=== PATIENT | male | born 1965 | race Caucasian/White ===

== ENCOUNTER 2020-09-26 16:06 | Emergency (ER) | payer OTHER ==
[~2020-09-26 16:06] MED LIST: BACTRIM DS TAB1 EACH PO; BACTROBAN NASAL1 G1 TOP; CYCLOBENZAPRINE10 MG PO; IBUPROFEN600 MG PO; IBUPROFEN800 MG PO; KEFLEX CAP 500500 MG PO; LORTAB 7.5-3251 EACH PO; NORCO 7.5-3251 EACH PO; OXYCODON-ACETA1 EAC1 PO; PERCOCET 10-321 EACH PO; ZITHROMAX250 MG PO
[2020-11-17] MEDS ORDERED: VITAMIN D21250 MCG PO (09:31)
[2020-11-22] MEDS ORDERED: TRULICITY0.75 MG/0. SQ (09:27)
[2020-12-18] MEDS ORDERED: NITROGLYCERIN0.4 MG SL (10:28)
[2020-12-18] MEDS ORDERED: PROTONIX40 MG PO (10:34)
[2020-12-18] MEDS ORDERED: VITAMIN D21250 MCG PO (10:35)
[2020-12-18] MEDS ORDERED: TOUJEO MAX300 UNIT/1 SQ (10:35)
== END 2020-09-26 21:26 | disposition left against medical advice (07) ==
LOC: ER1 16:06
DX: Z53.21 Procedure and treatment not carried out due to patient leaving prior to being seen by health care provider (principal)
CPT/HCPCS: 93005

== ENCOUNTER 2020-11-22 14:16 | Inpatient (IN) | payer OTHER ==
[~2020-11-22] VITALS: Ht 182.9 cm; Wt 94.8 kg
[~2020-11-22 14:16] MED LIST changes: +TRULICITY0.75 MG/0. SQ; +VITAMIN D21250 MCG PO
[2020-11-22 16:28] LABS: HEMOGLOBIN 10.8 gm/dl (14.0-17.5); RED BLOOD COUNT 3.56 M/UL (4.20-5.50); WHITE BLOOD COUNT 5.6 K/UL (4.5-11.0)
[2020-11-23 04:47] LABS: HEMOGLOBIN 9.3 gm/dl (14.0-17.5); WHITE BLOOD COUNT 5.2 K/UL (4.5-11.0)
[2020-11-23 04:48] LABS: RED BLOOD COUNT 3.07 M/UL (4.20-5.50)
[2020-11-23] MEDS ORDERED: NITROGLYCERIN0.4 MG SL (09:30)
[2020-11-23] MEDS ORDERED: TRAMADOL HCL50 MG PO (09:31)
[2020-11-23] MEDS ORDERED: IBUPROFEN600 MG PO (09:34)
[2020-11-23] MEDS ORDERED: LOPRESSOR 25 MG25 MG PO (09:39)
[2020-11-23] MEDS ORDERED: AMLODIPINE BESY10 MG PO (09:40)
[2020-11-23] MEDS ORDERED: TOUJEO MAX300 UNIT/1 SC (11:02)
[2020-11-23] MEDS ORDERED: APIDRA SOL100 UNIT/1 SC (11:05)
[2020-11-23] MEDS ORDERED: GABAPENTIN800 MG PO (11:07)
[2020-11-23] MEDS ORDERED: ONDANSETRON ODT8 MG PO (12:23)
[2020-11-24] MEDS ORDERED: LANTUS INS100 UTS/M1 SC (15:38)
[2020-11-24] MEDS ORDERED: HYDRALAZINE HCL50 MG PO (15:38)
[2020-11-24] MEDS ORDERED: ATORVASTATIN CA20 MG PO (15:38)
[2020-11-24] MEDS ORDERED: OXYCODONE HCL5 MG PO (15:38)
--- NOTE | 2020-11-24 18:00 | NUR ---
REPORT CALLED TO [facility] TO MICHAEL VAZQUEZ
[2020-11-25 10:14] LABS: CREATININE, URINE 54.3 mg/dL (Not Estab.)
[2020-12-18] MEDS ORDERED: NITROGLYCERIN0.4 MG SL (10:28)
[2020-12-18] MEDS ORDERED: PROTONIX40 MG PO (10:34)
[2020-12-18] MEDS ORDERED: TOUJEO MAX300 UNIT/1 SQ (10:35)
[2020-12-18] MEDS ORDERED: VITAMIN D21250 MCG PO (10:35)
== END 2020-11-24 21:30 | disposition short-term general hospital (02) | DRG 280 ==
LOC: ER1 14:16 → CDU 17:48 → PROG CARE 11-23 10:15
PROVIDERS: Internal Medicine Cardiovascular Disease; Physician Assistant Medical; ADMIT Internal Medicine
PROC: B24BZZ4 Ultrasonography of Heart with Aorta, Transesophageal (ICD-10-PCS; principal; 2020-11-23)
PROC: 4A023N7 Measurement of Cardiac Sampling and Pressure, Left Heart, Percutaneous Approach (ICD-10-PCS; 2020-11-24)
PROC: B2111ZZ Fluoroscopy of Multiple Coronary Arteries using Low Osmolar Contrast (ICD-10-PCS; 2020-11-24)
DX: I21.4 Non-ST elevation (NSTEMI) myocardial infarction (principal); I50.43 Acute on chronic combined systolic (congestive) and diastolic (congestive) heart failure; N17.9 Acute kidney failure, unspecified; N18.4 Chronic kidney disease, stage 4 (severe); I13.0 Hypertensive heart and chronic kidney disease with heart failure and stage 1 through stage 4 chronic kidney disease, or unspecified chronic kidney disease; E87.1 Hypo-osmolality and hyponatremia; E87.5 Hyperkalemia; Z20.822 Contact with and (suspected) exposure to COVID-19; E11.649 Type 2 diabetes mellitus with hypoglycemia without coma; G89.29 Other chronic pain; E11.21 Type 2 diabetes mellitus with diabetic nephropathy; E66.9 Obesity, unspecified; E11.22 Type 2 diabetes mellitus with diabetic chronic kidney disease; I08.1 Rheumatic disorders of both mitral and tricuspid valves; I25.5 Ischemic cardiomyopathy; D63.1 Anemia in chronic kidney disease; F17.210 Nicotine dependence, cigarettes, uncomplicated; Z79.4 Long term (current) use of insulin; Z82.49 Family history of ischemic heart disease and other diseases of the circulatory system; Z84.1 Family history of disorders of kidney and ureter; Z83.3 Family history of diabetes mellitus; Z79.82 Long term (current) use of aspirin; Z68.28 Body mass index [BMI] 28.0-28.9, adult
CPT/HCPCS: ECHO; 36415; 71045; 80048; 80053; 80061; 81001; 82043; 82550; 82553; 82570; 82728; 82962; 83036; 83540; 83550; 83874; 83880; 84156; 84484; 85025; 85027; 85347; 85610; 85730; 93005; 93306; 94640; 94664; 94760; 99152; 99285; C1769; C1894; J0360; J1644; J2250; J2270; J3010; Q9965; U0002

== ENCOUNTER 2020-12-17 22:57 | Inpatient (IN) | payer OTHER ==
[~2020-12-17] VITALS: Ht 182.9 cm; Wt 96.2 kg
[~2020-12-17 22:57] MED LIST changes: +AMLODIPINE BESY10 MG PO; +APIDRA SOL100 UNIT/1 SC; +ATORVASTATIN CA20 MG PO; +GABAPENTIN800 MG PO; +HYDRALAZINE HCL50 MG PO; +LANTUS INS100 UTS/M1 SC; +LOPRESSOR 25 MG25 MG PO; +NITROGLYCERIN0.4 MG SL; +ONDANSETRON ODT8 MG PO; +OXYCODONE HCL5 MG PO; +TOUJEO MAX300 UNIT/1 SC; +TRAMADOL HCL50 MG PO
[2020-12-18 00:09] LABS: HEMOGLOBIN 8.1 gm/dl (14.0-17.5); RED BLOOD COUNT 2.79 M/UL (4.20-5.50); WHITE BLOOD COUNT 10.2 K/UL (4.5-11.0)
[2020-12-18 00:38] LABS: BUN/CREATININE RATIO 15 (0-10)
[2020-12-18] MEDS ORDERED: ALPRAZOLAM0.5 MG PO (10:28)
[2020-12-18] MEDS ORDERED: ATORVASTATIN CA40 MG PO (10:29)
[2020-12-18] MEDS ORDERED: BUMETANIDE2 MG PO (10:30)
[2020-12-18] MEDS ORDERED: ZEBETA 5 MG TAB5 MG PO (10:30)
[2020-12-18] MEDS ORDERED: PLAVIX 75 MG TA75 MG PO (10:30)
[2020-12-18] MEDS ORDERED: FERROUS SULFAT325 M2 PO (10:31)
[2020-12-18] MEDS ORDERED: DOCUSATE SODIU100 MG PO (10:31)
[2020-12-18] MEDS ORDERED: ISOSORBIDE DINI10 MG PO (10:32)
[2020-12-18] MEDS ORDERED: HYDRALAZINE HCL10 MG PO (10:32)
[2020-12-18] MEDS ORDERED: GABAPENTIN300 MG PO (10:32)
[2020-12-18] MEDS ORDERED: ZAROXOLYN/DIUL2.5 MG PO (10:33)
[2020-12-18] MEDS ORDERED: OXYCODONE HCL5 MG PO (10:34)
[2020-12-18] MEDS ORDERED: ASPIRIN EC81 MG PO (10:36)
[2020-12-18] MEDS ORDERED: APIDRA SOL100 UNIT/1 SC (10:36)
[2020-12-19 04:01] LABS: HEMOGLOBIN 8.3 gm/dl (14.0-17.5); RED BLOOD COUNT 2.89 M/UL (4.20-5.50); WHITE BLOOD COUNT 10.2 K/UL (4.5-11.0)
[2020-12-20 06:18] LABS: HEMOGLOBIN 8.3 gm/dl (14.0-17.5); RED BLOOD COUNT 2.87 M/UL (4.20-5.50); WHITE BLOOD COUNT 7.7 K/UL (4.5-11.0)
[2020-12-22 08:20] LABS: ANTISTREPTOLYSIN O AB 107.6 IU/mL (0.0-200.0); COMPLEMENT C3, SERUM 174 mg/dL (82-167); COMPLEMENT C4, SERUM 33 mg/dL (12-38)
[2020-12-22 09:20] LABS: HBSAG SCREEN Negative (Negative); HEP B CORE AB, TOT Negative (Negative); HEP C VIRUS AB 0.5 (0.0-0.9)
[2020-12-22 15:22] LABS: ANTI-DSDNA ANTIBODIES 1 IU/mL (0-9)
[2020-12-22 16:34] LABS: A/G RATIO 0.7 (0.7-1.7); ALBUMIN 2.5 g/dL (2.9-4.4); ALPHA-1-GLOBULIN 0.4 g/dL (0.0-0.4); ALPHA-2-GLOBULIN 1.2 g/dL (0.4-1.0); ATYPICAL PANCA <1:20 titer (Neg:<1:20); BETA GLOBULIN 1.1 g/dL (0.7-1.3); CYTOPLASMIC (C-ANCA) <1:20 titer (Neg:<1:20); GAMMA GLOBULIN 1.1 g/dL (0.4-1.8); GLOBULIN, TOTAL 3.8 g/dL (2.2-3.9); IMMUNOFIXATION RESULT, SERUM Comment: (.); IMMUNOGLOBULIN A, QN, SERUM 505 mg/dL (90-386); IMMUNOGLOBULIN G, QN, SERUM 1105 mg/dL (603-1613); IMMUNOGLOBULIN M, QN, SERUM 86 mg/dL (20-172); M-SPIKE Not Observed g/dL (Not Observed); PERINUCLEAR (P-ANCA) <1:20 titer (Neg:<1:20); PROTEIN, TOTAL, SERUM 6.3 g/dL (6.0-8.5)
--- NOTE | 2020-12-23 00:30 | NUR ---
PATIENT HAS ARRIVED ON THE FLOOR WITH RN AND RESPIRATORY ON CONTINUOUS BIPAP. PATIENT CONTINUOUSLY REMOVES PULSE OX SENSOR DESPITE INSTRUCTIONS NOT TO.
[2020-12-23 02:40] LABS: HEMOGLOBIN 7.6 gm/dl (14.0-17.5); RED BLOOD COUNT 2.68 M/UL (4.20-5.50); WHITE BLOOD COUNT 6.4 K/UL (4.5-11.0)
[2020-12-24 08:15] LABS: WHITE BLOOD COUNT 6.6 K/UL (4.5-11.0)
[2020-12-24 08:16] LABS: RED BLOOD COUNT 2.38 M/UL (4.20-5.50)
[2020-12-24 08:24] LABS: HEMOGLOBIN 6.9 gm/dl (14.0-17.5)
[2020-12-25 05:13] LABS: HEMOGLOBIN 8.4 gm/dl (14.0-17.5); WHITE BLOOD COUNT 6.2 K/UL (4.5-11.0)
[2020-12-25 05:19] LABS: RED BLOOD COUNT 2.93 M/UL (4.20-5.50)
[2020-12-26 03:55] LABS: HEMOGLOBIN 7.8 gm/dl (14.0-17.5); RED BLOOD COUNT 2.72 M/UL (4.20-5.50)
[2020-12-27 04:54] LABS: HEMOGLOBIN 7.8 gm/dl (14.0-17.5); RED BLOOD COUNT 2.77 M/UL (4.20-5.50); WHITE BLOOD COUNT 5.2 K/UL (4.5-11.0)
[2020-12-27 05:19] LABS: HBSAG SCREEN Negative (Negative); HEP A AB, IGM Negative (Negative); HEP B CORE AB, IGM Negative (Negative); HEP C VIRUS AB 0.5 (0.0-0.9)
[2020-12-27 13:10] LABS: TOTAL PROTEIN, BODY FLUID 3.4 gm/dL
[2020-12-28 05:16] LABS: HEMOGLOBIN 7.8 gm/dl (14.0-17.5); RED BLOOD COUNT 2.74 M/UL (4.20-5.50); WHITE BLOOD COUNT 6.4 K/UL (4.5-11.0)
[2020-12-29 04:12] LABS: HEMOGLOBIN 7.6 gm/dl (14.0-17.5); RED BLOOD COUNT 2.66 M/UL (4.20-5.50); WHITE BLOOD COUNT 7.7 K/UL (4.5-11.0)
[2020-12-29 10:51] LABS: BODY FLUID SOURCE PLEURAL; MONONUCLEAR CELLS 94 (75-100); POLYMORPHONUCLEAR % 6 (0-25); RBC (AUTOMATED) 400 (0-100000); WBC (AUTOMATED) 357 (0-500)
[2020-12-29 11:11] LABS: LDH, BODY FLUID 197 U/L; TOTAL PROTEIN, BODY FLUID 4.3 gm/dL
[2020-12-30 05:27] LABS: HEMOGLOBIN 7.5 gm/dl (14.0-17.5); RED BLOOD COUNT 2.68 M/UL (4.20-5.50); WHITE BLOOD COUNT 6.8 K/UL (4.5-11.0)
[2020-12-31 05:47] LABS: HEMOGLOBIN 9.2 gm/dl (14.0-17.5); WHITE BLOOD COUNT 8.4 K/UL (4.5-11.0)
[2020-12-31 05:49] LABS: RED BLOOD COUNT 3.23 M/UL (4.20-5.50)
[2021-01-01 03:45] LABS: HEMOGLOBIN 8.9 gm/dl (14.0-17.5); RED BLOOD COUNT 3.14 M/UL (4.20-5.50)
[2021-01-01 03:47] LABS: WHITE BLOOD COUNT 6.2 K/UL (4.5-11.0)
[2021-01-02 03:04] LABS: HEMOGLOBIN 8.8 gm/dl (14.0-17.5); RED BLOOD COUNT 3.23 M/UL (4.20-5.50)
[2021-01-02 03:22] LABS: WHITE BLOOD COUNT 8.2 K/UL (4.5-11.0)
--- NOTE | 2021-01-02 17:50 | NUR ---
DR. KLEIN ON FLOOR, STATES TO HOLD PTS HEPARIN TONIGNT AND IN AM FOR BEDSIDE PROCEDURE IN AM
[2021-01-04 03:01] LABS: HEMOGLOBIN 9.7 gm/dl (14.0-17.5); RED BLOOD COUNT 3.43 M/UL (4.20-5.50); WHITE BLOOD COUNT 9.2 K/UL (4.5-11.0)
[2021-01-05] MEDS ORDERED: BUMETANIDE2 MG PO (12:18)
[2021-01-26] MEDS ORDERED: NITROGLYCERIN0.4 MG SL (10:28)
[2021-01-26] MEDS ORDERED: PROTONIX40 MG PO (10:34)
[2021-01-26] MEDS ORDERED: TOUJEO MAX300 UNIT/1 SQ (10:35)
[2021-01-26] MEDS ORDERED: VITAMIN D21250 MCG PO (10:35)
== END 2021-01-05 13:08 | disposition home or self-care (01) | DRG 280 ==
LOC: ER1 22:57 → MED SURG 4 12-18 08:42 → PROG CARE 12-18 08:42 → CDU 12-18 08:42 → CCU 12-18 08:42 → MED SURG 4 12-18 19:59 → PROG CARE 12-22 23:11 → CCU 12-24 07:48 → PROG CARE 12-31 13:21
PROVIDERS: Emergency Medicine; Internal Medicine; Internal Medicine Nephrology; Internal Medicine Pulmonary Disease; Physician Assistant; Physician Assistant Medical; ADMIT Internal Medicine
PROC: B24BZZ4 Ultrasonography of Heart with Aorta, Transesophageal (ICD-10-PCS; 2020-12-19)
PROC: 5A09357 Assistance with Respiratory Ventilation, Less than 24 Consecutive Hours, Continuous Positive Airway Pressure (ICD-10-PCS; 2020-12-23)
PROC: 5A12012 Performance of Cardiac Output, Single, Manual (ICD-10-PCS; principal; 2020-12-24)
PROC: 0BH17EZ Insertion of Endotracheal Airway into Trachea, Via Natural or Artificial Opening (ICD-10-PCS; 2020-12-24)
PROC: 3E033XZ Introduction of Vasopressor into Peripheral Vein, Percutaneous Approach (ICD-10-PCS; 2020-12-24)
PROC: 5A1D70Z Performance of Urinary Filtration, Intermittent, Less than 6 Hours Per Day (ICD-10-PCS; 2020-12-24)
PROC: 5A1955Z Respiratory Ventilation, Greater than 96 Consecutive Hours (ICD-10-PCS; 2020-12-24)
PROC: 30233N1 Transfusion of Nonautologous Red Blood Cells into Peripheral Vein, Percutaneous Approach (ICD-10-PCS; 2020-12-24)
PROC: 02HV33Z Insertion of Infusion Device into Superior Vena Cava, Percutaneous Approach (ICD-10-PCS; 2020-12-24)
PROC: B548ZZA Ultrasonography of Superior Vena Cava, Guidance (ICD-10-PCS; 2020-12-24)
PROC: 5A1D70Z Performance of Urinary Filtration, Intermittent, Less than 6 Hours Per Day (ICD-10-PCS; 2020-12-27)
PROC: 0W9B30Z Drainage of Left Pleural Cavity with Drainage Device, Percutaneous Approach (ICD-10-PCS; 2020-12-27)
PROC: BB4BZZZ Ultrasonography of Pleura (ICD-10-PCS; 2020-12-27)
PROC: 5A1D70Z Performance of Urinary Filtration, Intermittent, Less than 6 Hours Per Day (ICD-10-PCS; 2020-12-29)
PROC: 0W993ZZ Drainage of Right Pleural Cavity, Percutaneous Approach (ICD-10-PCS; 2020-12-29)
PROC: BB4BZZZ Ultrasonography of Pleura (ICD-10-PCS; 2020-12-29)
PROC: 0JH63XZ Insertion of Tunneled Vascular Access Device into Chest Subcutaneous Tissue and Fascia, Percutaneous Approach (ICD-10-PCS; 2021-01-04)
PROC: 02HV33Z Insertion of Infusion Device into Superior Vena Cava, Percutaneous Approach (ICD-10-PCS; 2021-01-04)
PROC: B5181ZA Fluoroscopy of Superior Vena Cava using Low Osmolar Contrast, Guidance (ICD-10-PCS; 2021-01-04)
DX: I13.2 Hypertensive heart and chronic kidney disease with heart failure and with stage 5 chronic kidney disease, or end stage renal disease (principal); N17.0 Acute kidney failure with tubular necrosis; I21.4 Non-ST elevation (NSTEMI) myocardial infarction; J96.01 Acute respiratory failure with hypoxia; I50.23 Acute on chronic systolic (congestive) heart failure; G93.41 Metabolic encephalopathy; I46.2 Cardiac arrest due to underlying cardiac condition; R57.0 Cardiogenic shock; J18.9 Pneumonia, unspecified organism; N18.6 End stage renal disease; E87.2 Acidosis; J44.0 Chronic obstructive pulmonary disease with (acute) lower respiratory infection; E27.40 Unspecified adrenocortical insufficiency; J90 Pleural effusion, not elsewhere classified; Z20.822 Contact with and (suspected) exposure to COVID-19; L89.152 Pressure ulcer of sacral region, stage 2; F17.210 Nicotine dependence, cigarettes, uncomplicated; K21.9 Gastro-esophageal reflux disease without esophagitis; E11.22 Type 2 diabetes mellitus with diabetic chronic kidney disease; I25.5 Ischemic cardiomyopathy; I27.20 Pulmonary hypertension, unspecified; E87.5 Hyperkalemia; L89.156 Pressure-induced deep tissue damage of sacral region; R13.10 Dysphagia, unspecified; E87.6 Hypokalemia; I08.1 Rheumatic disorders of both mitral and tricuspid valves; E78.5 Hyperlipidemia, unspecified; W17.89XA Other fall from one level to another, initial encounter; E11.649 Type 2 diabetes mellitus with hypoglycemia without coma; F41.9 Anxiety disorder, unspecified; D63.1 Anemia in chronic kidney disease; Z79.4 Long term (current) use of insulin; Z79.82 Long term (current) use of aspirin; Y93.I9 Activity, other involving external motion; Y92.488 Other paved roadways as the place of occurrence of the external cause; Z82.49 Family history of ischemic heart disease and other diseases of the circulatory system; Z84.1 Family history of disorders of kidney and ureter; Z83.3 Family history of diabetes mellitus
CPT/HCPCS: ECHO; 31500; 36415; 36430; 36600; 70450; 71045; 71046; 71250; 72125; 74018; 77001; 80048; 80053; 80074; 82140; 82533; 82550; 82553; 82570; 82575; 82728; 82784; 82803; 82962; 83520; 83540; 83550; 83615; 83735; 83874; 83880; 83883; 84100; 84155; 84156; 84157; 84165; 84484; 85025; 85027; 85610; 85730; 86038; 86060; 86140; 86160; 86162; 86225; 86256; 86334; 86704; 86706; 86708; 86803; 86850; 86900; 86901; 86920; 87040; 87070; 87086; 87205; 87340; 89051; 90935; 90937; 92526; 92610; 92950; 93005; 93306; 94003; 94640; 94660; 94664; 94760; 99284; A6212; C1729; C1750; C1752; C1769; C9113; J0330; J0690; J0834; J1205; J1642; J1644; J1720; J1756; J1940; J2001; J2250; J2270; J2543; J2704; J3010; J3475; J7030; J7040; J7070; J7120; P9016; P9047; U0002

== ENCOUNTER 2021-01-12 19:23 | Emergency (ER) | payer OTHER ==
[~2021-01-12 19:23] MED LIST changes: +ALPRAZOLAM0.5 MG PO; +ASPIRIN EC81 MG PO; +ATORVASTATIN CA40 MG PO; +BUMETANIDE2 MG PO; +DOCUSATE SODIU100 MG PO; +FERROUS SULFAT325 M2 PO; +GABAPENTIN300 MG PO; +HYDRALAZINE HCL10 MG PO; +ISOSORBIDE DINI10 MG PO; +PLAVIX 75 MG TA75 MG PO; +ZAROXOLYN/DIUL2.5 MG PO; +ZEBETA 5 MG TAB5 MG PO
[2021-01-12 20:25] LABS: RED BLOOD COUNT 3.16 M/UL (4.20-5.50); WHITE BLOOD COUNT 4.5 K/UL (4.5-11.0)
[2021-01-26] MEDS ORDERED: NITROGLYCERIN0.4 MG SL (10:28)
[2021-01-26] MEDS ORDERED: PROTONIX40 MG PO (10:34)
[2021-01-26] MEDS ORDERED: TOUJEO MAX300 UNIT/1 SQ (10:35)
[2021-01-26] MEDS ORDERED: VITAMIN D21250 MCG PO (10:35)
== END 2021-01-12 22:44 | disposition home or self-care (01) ==
LOC: ER1 19:23
PROVIDERS: Physician Assistant
DX: L89.152 Pressure ulcer of sacral region, stage 2 (principal); F17.210 Nicotine dependence, cigarettes, uncomplicated; I25.2 Old myocardial infarction; E78.5 Hyperlipidemia, unspecified; E11.22 Type 2 diabetes mellitus with diabetic chronic kidney disease; N18.6 End stage renal disease; Z99.2 Dependence on renal dialysis; Z95.1 Presence of aortocoronary bypass graft; Z91.15 Patient's noncompliance with renal dialysis
CPT/HCPCS: 80053; 83605; 85025; 85652; 86140; 99283

== ENCOUNTER → 2021-01-23 | Outpatient (CLI) | payer OTHER ==
[~2021-01-23] MED LIST changes: +CLINDAMYCIN HC300 MG PO; +HYDROXYZINE PAM25 MG PO; +IBU600 MG PO; +IPRAT-ALBUT 0.5-3 ML NEB; +METOPROLOL SUCC25 MG PO; +METOPROLOL TART25 MG PO; +OXYCODONE HCL10 MG PO; +OXYCONTIN10 MG PO; +POLYETHYLENE GL17 GM PO; +PROTONIX40 MG PO; +TOUJEO MAX300 UNIT/1 SQ
== END ==
LOC: WCC 09:00
DX: L89.153 Pressure ulcer of sacral region, stage 3 (principal); I13.2 Hypertensive heart and chronic kidney disease with heart failure and with stage 5 chronic kidney disease, or end stage renal disease; E11.22 Type 2 diabetes mellitus with diabetic chronic kidney disease; N18.6 End stage renal disease; Z99.2 Dependence on renal dialysis; I50.9 Heart failure, unspecified; Z88.6 Allergy status to analgesic agent; F17.210 Nicotine dependence, cigarettes, uncomplicated; I25.10 Atherosclerotic heart disease of native coronary artery without angina pectoris; Z79.4 Long term (current) use of insulin; E11.622 Type 2 diabetes mellitus with other skin ulcer
CPT/HCPCS: 87070; 87077; 87186; 87205; G0463

== ENCOUNTER 2021-01-26 12:34 | Inpatient (IN) | payer OTHER ==
[~2021-01-26] VITALS: Ht 182.9 cm; Wt 93.2 kg
[~2021-01-26 12:34] MED LIST changes: -CLINDAMYCIN HC300 MG PO; -HYDROXYZINE PAM25 MG PO; -IBU600 MG PO; -IPRAT-ALBUT 0.5-3 ML NEB; -METOPROLOL SUCC25 MG PO; -METOPROLOL TART25 MG PO; -OXYCODONE HCL10 MG PO; -OXYCONTIN10 MG PO; -POLYETHYLENE GL17 GM PO
[2021-01-26 14:05] LABS: HEMOGLOBIN 8.3 gm/dl (14.0-17.5); RED BLOOD COUNT 2.86 M/UL (4.20-5.50); WHITE BLOOD COUNT 12.5 K/UL (4.5-11.0)
[2021-01-26] MEDS ORDERED: ZEBETA 5 MG TAB5 MG PO (17:52)
[2021-01-26] MEDS ORDERED: BUMETANIDE2 MG PO (17:54)
[2021-01-26] MEDS ORDERED: ZAROXOLYN/DIUL2.5 MG PO (17:54)
[2021-01-26] MEDS ORDERED: METOPROLOL TART25 MG PO (17:55)
[2021-01-26] MEDS ORDERED: DOCUSATE SODIU100 MG PO (17:57)
[2021-01-26] MEDS ORDERED: IBU600 MG PO (18:04)
[2021-01-27 07:16] LABS: HEMOGLOBIN 8.5 gm/dl (14.0-17.5); RED BLOOD COUNT 2.99 M/UL (4.20-5.50)
[2021-01-27 07:19] LABS: WHITE BLOOD COUNT 17.2 K/UL (4.5-11.0)
[2021-01-28 04:29] LABS: HEMOGLOBIN 7.7 gm/dl (14.0-17.5); RED BLOOD COUNT 2.73 M/UL (4.20-5.50); WHITE BLOOD COUNT 19.9 K/UL (4.5-11.0)
[2021-01-29 05:11] LABS: HEMOGLOBIN 7.2 gm/dl (14.0-17.5); RED BLOOD COUNT 2.54 M/UL (4.20-5.50); WHITE BLOOD COUNT 16.9 K/UL (4.5-11.0)
[2021-01-30 06:54] LABS: HEMOGLOBIN 7.6 gm/dl (14.0-17.5); RED BLOOD COUNT 2.68 M/UL (4.20-5.50); WHITE BLOOD COUNT 12.5 K/UL (4.5-11.0)
--- NOTE | 2021-01-31 00:24 | NUR ---
PT STATES THAT WHEN THE CHAVA FOR MRI CAME IN HE PULLED OFF ALL STICKERS AND FENTAYL PATCH, I DID FIND THE FENTAYL PATCH IN THE BED IN A BALL, I THREW THIS IN THE BIOHAZARD BOX WITH MORELIA GOMES RN.
[2021-01-31 08:02] LABS: RED BLOOD COUNT 2.86 M/UL (4.20-5.50); WHITE BLOOD COUNT 10.1 K/UL (4.5-11.0)
--- NOTE | 2021-01-31 11:15 | NUR ---
RN NOTIFIED MD OF CLUB STEWARD DISPOSAL OF FENTANYL PATCH. MD ORDERED RN TO APPLY A NEW PATCH THEN RETIME ADMINISTRATION FOR THIS APPLICATION TO RESUME SCHEDULE DURING HOSPITALIZATION.
--- NOTE | 2021-01-31 12:42 | NUR ---
FENTANYL PATCH APPLIED TO RIGHT UPPER SHOULDER.
--- NOTE | 2021-01-31 20:05 | NUR ---
PATIENT CONTINUES TO REFUSE WAFFLE MATTRESS, COMPLETE WOUND CARE, AND OTHER INTERVENTIONS TO AID IN GLUTEAL FOLD ULCER HEALING. DR. STEINBERG MADE AWARE.
[2021-02-01 07:17] LABS: HEMOGLOBIN 7.9 gm/dl (14.0-17.5); RED BLOOD COUNT 2.8 M/UL (4.20-5.50); WHITE BLOOD COUNT 8.9 K/UL (4.5-11.0)
--- NOTE | 2021-02-01 19:44 | NUR ---
PATIENT CONTINUES TO BE NONCOMPLIANT WITH SCHEDULED TURNING, COMPLETE WOUND CARE REGIMEN, AND WAFFLE MATTRESS.
[2021-02-02 10:25] LABS: HEMOGLOBIN 8.2 gm/dl (14.0-17.5); RED BLOOD COUNT 2.93 M/UL (4.20-5.50); WHITE BLOOD COUNT 8.4 K/UL (4.5-11.0)
[2021-02-02 10:58] LABS: BUN/CREATININE RATIO 20 (0-10)
[2021-02-03 10:20] LABS: HEMOGLOBIN 7.7 gm/dl (14.0-17.5); RED BLOOD COUNT 2.68 M/UL (4.20-5.50); WHITE BLOOD COUNT 6.9 K/UL (4.5-11.0)
[2021-02-04 07:52] LABS: HEMOGLOBIN 7.5 gm/dl (14.0-17.5); RED BLOOD COUNT 2.68 M/UL (4.20-5.50); WHITE BLOOD COUNT 5.4 K/UL (4.5-11.0)
--- NOTE | 2021-02-04 19:15 | NUR ---
PT REQUESTING PAIN MEDS AND BP 101/61. MD NOTIFIED. ONLY ONE PERCOCET GIVEN AT THAT TIME. APPROXIMATELY 2 HRS LATER PT ASKING FOR IV MORPHINE. B/P 97/61. MD NOTIFIED AND IV BOLUS GIVEN. B/P AFTER BOLUS 94/48. MD AWARE AND MEDS HELD. PT TAKEN TO DIALYSIS AT THAT TIME.
[2021-02-06 07:55] LABS: RED BLOOD COUNT 2.44 M/UL (4.20-5.50); WHITE BLOOD COUNT 5.9 K/UL (4.5-11.0)
[2021-02-06 07:57] LABS: HEMOGLOBIN 6.6 gm/dl (14.0-17.5)
--- NOTE | 2021-02-06 19:14 | NUR ---
UNABLE TO FIND DURAGESIC PATCH THAT WAS ON PT'S RIGHT SHOULDER. PT SAID THAT IT APPARENTLY SWEATED OFF. UNABLE TO FIND PATCH IN BED OR ON PT'S CLOTHING. AWARE. SPOKE WITH PHARMACY AND THEY STATED THAT A NOW ORDER WOULD NEED TO BE PLACED. DR STEINBERG NOTIFIED
[2021-02-07 07:17] LABS: RED BLOOD COUNT 2.44 M/UL (4.20-5.50)
[2021-02-07 07:18] LABS: WHITE BLOOD COUNT 7.6 K/UL (4.5-11.0)
[2021-02-08 06:18] LABS: HEMOGLOBIN 7.5 gm/dl (14.0-17.5); RED BLOOD COUNT 2.66 M/UL (4.20-5.50)
[2021-02-08 06:32] LABS: WHITE BLOOD COUNT 4.8 K/UL (4.5-11.0)
[2021-02-09 07:33] LABS: HEMOGLOBIN 7.6 gm/dl (14.0-17.5); RED BLOOD COUNT 2.69 M/UL (4.20-5.50)
[2021-02-10 04:29] LABS: HEMOGLOBIN 7.8 gm/dl (14.0-17.5); RED BLOOD COUNT 2.76 M/UL (4.20-5.50)
[2021-02-10 04:37] LABS: WHITE BLOOD COUNT 6.6 K/UL (4.5-11.0)
[2021-02-11 09:33] LABS: HEMOGLOBIN 8.8 gm/dl (14.0-17.5); WHITE BLOOD COUNT 6.2 K/UL (4.5-11.0)
[2021-02-11 09:35] LABS: RED BLOOD COUNT 3.26 M/UL (4.20-5.50)
[2021-02-12 07:26] LABS: HEMOGLOBIN 7.7 gm/dl (14.0-17.5); WHITE BLOOD COUNT 6.7 K/UL (4.5-11.0)
[2021-02-12 07:35] LABS: RED BLOOD COUNT 2.81 M/UL (4.20-5.50)
[2021-02-12 08:10] LABS: HBSAG SCREEN Negative (Negative); HEP A AB, IGM Negative (Negative); HEP B CORE AB, IGM Negative (Negative); HEP C VIRUS AB <0.1 (0.0-0.9)
[2021-02-13 07:36] LABS: HEMOGLOBIN 7.6 gm/dl (14.0-17.5); RED BLOOD COUNT 2.76 M/UL (4.20-5.50); WHITE BLOOD COUNT 6.9 K/UL (4.5-11.0)
[2021-02-14 08:10] LABS: HEMOGLOBIN 7.7 gm/dl (14.0-17.5); RED BLOOD COUNT 2.78 M/UL (4.20-5.50); WHITE BLOOD COUNT 6.5 K/UL (4.5-11.0)
[2021-02-15 04:51] LABS: HEMOGLOBIN 7.3 gm/dl (14.0-17.5); RED BLOOD COUNT 2.66 M/UL (4.20-5.50)
[2021-02-15 05:40] LABS: WHITE BLOOD COUNT 4.6 K/UL (4.5-11.0)
[2021-02-15] MEDS ORDERED: OXYCONTIN10 MG PO (19:14)
[2021-02-15] MEDS ORDERED: METOPROLOL SUCC25 MG PO (19:14)
[2021-02-15] MEDS ORDERED: HYDROXYZINE PAM25 MG PO (19:14)
[2021-02-15] MEDS ORDERED: ATORVASTATIN CA40 MG PO (19:14)
[2021-02-15] MEDS ORDERED: IPRAT-ALBUT 0.5-3 ML NEB (19:14)
[2021-02-15] MEDS ORDERED: POLYETHYLENE GL17 GM PO (19:14)
[2021-02-16 08:21] LABS: HEMOGLOBIN 8.1 gm/dl (14.0-17.5); RED BLOOD COUNT 2.9 M/UL (4.20-5.50); WHITE BLOOD COUNT 4.8 K/UL (4.5-11.0)
[2021-02-17 08:00] LABS: HEMOGLOBIN 7.3 gm/dl (14.0-17.5); RED BLOOD COUNT 2.62 M/UL (4.20-5.50); WHITE BLOOD COUNT 4.4 K/UL (4.5-11.0)
[2021-02-18 07:43] LABS: HEMOGLOBIN 7.8 gm/dl (14.0-17.5); RED BLOOD COUNT 2.79 M/UL (4.20-5.50); WHITE BLOOD COUNT 4.6 K/UL (4.5-11.0)
[2021-02-19 07:37] LABS: HEMOGLOBIN 8.2 gm/dl (14.0-17.5); RED BLOOD COUNT 2.91 M/UL (4.20-5.50); WHITE BLOOD COUNT 5.3 K/UL (4.5-11.0)
[2021-02-20 07:03] LABS: HEMOGLOBIN 8.3 gm/dl (14.0-17.5); RED BLOOD COUNT 2.92 M/UL (4.20-5.50)
[2021-02-20 07:09] LABS: WHITE BLOOD COUNT 6.7 K/UL (4.5-11.0)
--- NOTE | 2021-02-20 08:06 | NUR ---
REPORTED CRITICAL LAB VALUE TO PROVIDER. PRINCE HAD BUN OF 101. PROVIDER ASKED ABOUT CREATNIN LEVEL WHICH WAS 3.89. NO ORDERS RECIEVED AT THIS TIME. WILL CONTINUE TO MONITOR.
[2021-02-22 10:58] LABS: WHITE BLOOD COUNT 5.1 K/UL (4.5-11.0)
[2021-02-22 11:25] LABS: RED BLOOD COUNT 2.45 M/UL (4.20-5.50)
[2021-02-23 08:56] LABS: HEMOGLOBIN 7.9 gm/dl (14.0-17.5); WHITE BLOOD COUNT 4.4 K/UL (4.5-11.0)
[2021-02-23 09:02] LABS: RED BLOOD COUNT 2.74 M/UL (4.20-5.50)
--- NOTE | 2021-02-23 11:35 | NUR ---
PATIENT HAS HAD BUN LAB VALUES OF 101,120, 118, AND 131 OVER THE LAST CONSECUTIVE DAYS. THE PROVIDER HAS BEEN NOTIFIED OF THESE CRITICAL LAB VALUES AND GAVE NO ORDERS. WILL CONTINUE TO MONITOR.
--- NOTE | 2021-02-23 12:24 | NUR ---
PATIENT HAD BLOOD GLUCOSE OF67. LUNCH TRAYS WERE BEING DILIVERED AND PATIENT WAS GIVEN APPLEJUICE AND PEANUTBUTTER AND CRACKERS. WILL CONTINUE TO MONITOR.
[2021-02-24 02:47] LABS: HEMOGLOBIN 7.6 gm/dl (14.0-17.5); RED BLOOD COUNT 2.61 M/UL (4.20-5.50)
[2021-02-25 07:58] LABS: HEMOGLOBIN 8.6 gm/dl (14.0-17.5); WHITE BLOOD COUNT 4.5 K/UL (4.5-11.0)
[2021-02-25 07:59] LABS: RED BLOOD COUNT 2.93 M/UL (4.20-5.50)
[2021-02-26 05:56] LABS: RED BLOOD COUNT 2.71 M/UL (4.20-5.50); WHITE BLOOD COUNT 4.5 K/UL (4.5-11.0)
[2021-02-27 07:05] LABS: HEMOGLOBIN 7.9 gm/dl (14.0-17.5); RED BLOOD COUNT 2.78 M/UL (4.20-5.50); WHITE BLOOD COUNT 4.2 K/UL (4.5-11.0)
[2021-02-28 06:43] LABS: RED BLOOD COUNT 2.73 M/UL (4.20-5.50)
[2021-03-01 07:00] LABS: HEMOGLOBIN 8.6 gm/dl (14.0-17.5); RED BLOOD COUNT 2.94 M/UL (4.20-5.50); WHITE BLOOD COUNT 4.1 K/UL (4.5-11.0)
--- NOTE | 2021-03-01 14:20 | NUR ---
DR. REED TOLD RN AND PATIENT THAT HE HAD THE FREEDOM TO LEAVE THE FLOOR IF HE WISHED BUT REINFORCED THE FACT THAT IT WAS NOT RECOMMENDED THAT HE LEAVE HIS ROOM DUE TO COVID-[address] PER POLICY WELL PATIENT STATUS. PATIENT UTILIZED WALKER TO GO DOWNSTAIRS THEN RETURNED TO ROOM. NO S/SX OF DISTRESS. SITTING UP IN CHAIR. CALL LIGHT WITHIN REACH.
[2021-03-02 04:35] LABS: HEMOGLOBIN 8.6 gm/dl (14.0-17.5); RED BLOOD COUNT 3.02 M/UL (4.20-5.50); WHITE BLOOD COUNT 3.8 K/UL (4.5-11.0)
[2021-03-03 05:15] LABS: HEMOGLOBIN 9.3 gm/dl (14.0-17.5); RED BLOOD COUNT 3.15 M/UL (4.20-5.50); WHITE BLOOD COUNT 3.6 K/UL (4.5-11.0)
[2021-03-03] MEDS ORDERED: OXYCODONE HCL10 MG PO (13:20)
[2021-03-03] MEDS ORDERED: CLINDAMYCIN HC300 MG PO (15:43)
--- NOTE | 2021-03-03 17:06 | NUR ---
called report to brandyn at [facility] , will fax a noted about what Dr Miller wants as part of his follow up pt refused to stay any longer, his ride is here and hes going to be late for work if they dont leave now he states , also told pablito to fill out a paper for the to have offoice of DR Ferreira to call him for a follow up appt to follow his wound vac for home health, he states he will and it will be saturday before they will call him.
== END 2021-03-03 16:30 | disposition home health service (06) | DRG 853 ==
LOC: ER1 12:34 → MED SURG 4 16:37 → CDU 16:37 → MED SURG 4 19:45
PROVIDERS: Hospitalist; Internal Medicine; Internal Medicine Nephrology; Physician Assistant; Surgery; ADMIT Internal Medicine
PROC: 5A1D70Z Performance of Urinary Filtration, Intermittent, Less than 6 Hours Per Day (ICD-10-PCS; 2021-01-27)
PROC: 0J990ZZ Drainage of Buttock Subcutaneous Tissue and Fascia, Open Approach (ICD-10-PCS; principal; 2021-01-27 15:00)
PROC: 0HB6XZZ Excision of Back Skin, External Approach (ICD-10-PCS; principal; 2021-01-27 15:00)
PROC: 5A1D70Z Performance of Urinary Filtration, Intermittent, Less than 6 Hours Per Day (ICD-10-PCS; 2021-01-30)
PROC: 5A1D70Z Performance of Urinary Filtration, Intermittent, Less than 6 Hours Per Day (ICD-10-PCS; 2021-01-31)
PROC: 5A1D70Z Performance of Urinary Filtration, Intermittent, Less than 6 Hours Per Day (ICD-10-PCS; 2021-02-03)
PROC: 5A1D70Z Performance of Urinary Filtration, Intermittent, Less than 6 Hours Per Day (ICD-10-PCS; 2021-02-04)
PROC: 5A1D70Z Performance of Urinary Filtration, Intermittent, Less than 6 Hours Per Day (ICD-10-PCS; 2021-02-07)
PROC: 5A1D70Z Performance of Urinary Filtration, Intermittent, Less than 6 Hours Per Day (ICD-10-PCS; 2021-02-10)
PROC: 5A1D70Z Performance of Urinary Filtration, Intermittent, Less than 6 Hours Per Day (ICD-10-PCS; 2021-02-14)
PROC: 5A1D70Z Performance of Urinary Filtration, Intermittent, Less than 6 Hours Per Day (ICD-10-PCS; 2021-02-17)
DX: A41.01 Sepsis due to Methicillin susceptible Staphylococcus aureus (principal); L89.153 Pressure ulcer of sacral region, stage 3; Z20.822 Contact with and (suspected) exposure to COVID-19; N18.6 End stage renal disease; K68.19 Other retroperitoneal abscess; Z16.21 Resistance to vancomycin; I50.22 Chronic systolic (congestive) heart failure; I13.2 Hypertensive heart and chronic kidney disease with heart failure and with stage 5 chronic kidney disease, or end stage renal disease; I47.2 Ventricular tachycardia; L02.31 Cutaneous abscess of buttock; E87.1 Hypo-osmolality and hyponatremia; N17.9 Acute kidney failure, unspecified; Z16.11 Resistance to penicillins; E11.52 Type 2 diabetes mellitus with diabetic peripheral angiopathy with gangrene; R57.0 Cardiogenic shock; E83.42 Hypomagnesemia; I08.1 Rheumatic disorders of both mitral and tricuspid valves; E87.6 Hypokalemia; E11.22 Type 2 diabetes mellitus with diabetic chronic kidney disease; D63.1 Anemia in chronic kidney disease; F41.9 Anxiety disorder, unspecified; E11.40 Type 2 diabetes mellitus with diabetic neuropathy, unspecified; D63.8 Anemia in other chronic diseases classified elsewhere; F17.210 Nicotine dependence, cigarettes, uncomplicated; I25.10 Atherosclerotic heart disease of native coronary artery without angina pectoris; R13.10 Dysphagia, unspecified; I25.5 Ischemic cardiomyopathy; B95.61 Methicillin susceptible Staphylococcus aureus infection as the cause of diseases classified elsewhere; K21.9 Gastro-esophageal reflux disease without esophagitis; I25.2 Old myocardial infarction; Z95.1 Presence of aortocoronary bypass graft; Z79.01 Long term (current) use of anticoagulants; Z79.82 Long term (current) use of aspirin; Z82.49 Family history of ischemic heart disease and other diseases of the circulatory system; Z84.1 Family history of disorders of kidney and ureter; Z83.3 Family history of diabetes mellitus; Z86.73 Personal history of transient ischemic attack (TIA), and cerebral infarction without residual deficits; Z91.15 Patient's noncompliance with renal dialysis; Z79.4 Long term (current) use of insulin
CPT/HCPCS: 36415; 36430; 80048; 80053; 80061; 80069; 80074; 81001; 82533; 82550; 82553; 82570; 82575; 82728; 82962; 83036; 83540; 83550; 83605; 83735; 83874; 83880; 84100; 84439; 84443; 84484; 85018; 85025; 85027; 85652; 86140; 86850; 86900; 86901; 86920; 87040; 87070; 87077; 87086; 87186; 87205; 90937; 93005; 94664; 94760; 96374; 97116; 97116-GP-CQ; 97163; 97164; 97166; 97530; 99284; A6212; G0463; J0692; J0878; J1644; J1756; J2001; J2185; J2270; J2405; J2704; J2765; J2997; J3010; J7030; J7120; P9016; P9047; Q0177; Q5105; Q5106; U0002

== ENCOUNTER 2021-04-02 20:14 | Emergency (ER) | payer OTHER ==
[~2021-04-02 20:14] MED LIST changes: +CLINDAMYCIN HC300 MG PO; +HYDROXYZINE PAM25 MG PO; +IBU600 MG PO; +IPRAT-ALBUT 0.5-3 ML NEB; +METOPROLOL SUCC25 MG PO; +METOPROLOL TART25 MG PO; +OXYCODONE HCL10 MG PO; +OXYCONTIN10 MG PO; +POLYETHYLENE GL17 GM PO
[2021-04-02 20:36] LABS: HEMOGLOBIN 10.1 gm/dl (14.0-17.5); RED BLOOD COUNT 3.38 M/UL (4.20-5.50); WHITE BLOOD COUNT 6.8 K/UL (4.5-11.0)
== END 2021-04-02 21:15 | disposition left against medical advice (07) ==
LOC: ER1 20:14
PROVIDERS: Student in an Organized Health Care Education/Training Program
DX: Z53.21 Procedure and treatment not carried out due to patient leaving prior to being seen by health care provider (principal)
CPT/HCPCS: 80053; 85025

== ENCOUNTER 2021-08-22 15:09 | Inpatient (IN) | payer OTHER ==
[~2021-08-22] VITALS: Ht 182.9 cm; Wt 90.9 kg
[2021-08-22 16:22] LABS: HEMOGLOBIN 9.5 gm/dl (14.0-17.5); RED BLOOD COUNT 3.17 M/UL (4.20-5.50)
[2021-08-23 08:30] LABS: HEMOGLOBIN 8.1 gm/dl (14.0-17.5)
[2021-08-23 08:32] LABS: RED BLOOD COUNT 2.73 M/UL (4.20-5.50); WHITE BLOOD COUNT 6.6 K/UL (4.5-11.0)
[2021-08-23] MEDS ORDERED: CALCITRIOL0.25 MCG PO (11:31)
[2021-08-23] MEDS ORDERED: FUROSEMIDE40 MG PO (11:32)
[2021-08-23] MEDS ORDERED: HYDRALAZINE HCL10 MG PO (11:32)
[2021-08-23] MEDS ORDERED: HYDROXYZINE HCL25 MG PO (11:33)
[2021-08-23] MEDS ORDERED: SODIUM BICARBO650 MG PO (11:33)
[2021-08-24 03:58] LABS: HEMOGLOBIN 8.4 gm/dl (14.0-17.5); RED BLOOD COUNT 2.84 M/UL (4.20-5.50); WHITE BLOOD COUNT 5.3 K/UL (4.5-11.0)
[2021-08-24] MEDS ORDERED: HUMALOG 10100 UNITS/ SC (12:21)
[2021-08-24] MEDS ORDERED: ASPIRIN 325MG325 MG PO (12:21)
[2021-08-24] MEDS ORDERED: LOPRESSOR 25 MG25 MG PO (12:21)
[2021-08-24] MEDS ORDERED: TOUJEO MAX300 UNIT/1 SQ (12:21)
[2021-08-24] MEDS ORDERED: ROXICODONE TAB 55 MG PO (12:28)
[2021-08-25 08:15] LABS: HBSAG SCREEN Negative (Negative); HEP A AB, IGM Negative (Negative); HEP B CORE AB, IGM Negative (Negative); HEP C VIRUS AB <0.1 (0.0-0.9); VITAMIN D, 25-HYDROXY 43.3 ng/mL (30.0-100.0)
== END 2021-08-24 15:00 | disposition home or self-care (01) | DRG 127 ==
LOC: ER1 15:09 → CDU 17:55 → M/S 17:55
PROVIDERS: Internal Medicine Nephrology; Physician Assistant; ADMIT Internal Medicine
PROC: 3E033GC Introduction of Other Therapeutic Substance into Peripheral Vein, Percutaneous Approach (ICD-10-PCS; 2021-08-22)
PROC: B24BZZZ Ultrasonography of Heart with Aorta (ICD-10-PCS; principal; 2021-08-23)
DX: I13.2 Hypertensive heart and chronic kidney disease with heart failure and with stage 5 chronic kidney disease, or end stage renal disease (principal); L89.153 Pressure ulcer of sacral region, stage 3; N18.6 End stage renal disease; E87.1 Hypo-osmolality and hyponatremia; L03.317 Cellulitis of buttock; I50.32 Chronic diastolic (congestive) heart failure; Z99.2 Dependence on renal dialysis; Z20.822 Contact with and (suspected) exposure to COVID-19; D63.1 Anemia in chronic kidney disease; E11.22 Type 2 diabetes mellitus with diabetic chronic kidney disease; D50.9 Iron deficiency anemia, unspecified; K21.9 Gastro-esophageal reflux disease without esophagitis; I25.5 Ischemic cardiomyopathy; F17.220 Nicotine dependence, chewing tobacco, uncomplicated; E78.5 Hyperlipidemia, unspecified; K59.00 Constipation, unspecified; I25.10 Atherosclerotic heart disease of native coronary artery without angina pectoris; Z95.1 Presence of aortocoronary bypass graft; Z79.4 Long term (current) use of insulin; Z79.82 Long term (current) use of aspirin; I25.2 Old myocardial infarction; Z98.890 Other specified postprocedural states; Z83.3 Family history of diabetes mellitus
CPT/HCPCS: ECHO; 36415; 70450; 71045; 72192; 80053; 80074; 80202; 81001; 82550; 82553; 82728; 82803; 82962; 83540; 83550; 83605; 83735; 83880; 84100; 84484; 85025; 85027; 85610; 85730; 93005; 93306; 96365; 96366; 96368; 96375; 99285; J1335; J1644; J2270; J2405; J3370; J7030; J7070; Q4081; Q5105; U0002

== ENCOUNTER → 2021-09-21 | Day surgery (SDC) | payer OTHER ==
[~2021-09-21] MED LIST changes: +ASPIRIN 325MG325 MG PO; +CALCITRIOL0.25 MCG PO; +DOXYCYCLINE HY100 M2 PO; +FUROSEMIDE40 MG PO; +HUMALOG 10100 UNITS/ SC; +HYDROXYZINE HCL25 MG PO; +LASIX 40 MG TAB40 MG PO; +NEURONTIN800 MG PO; +ROXICODONE TAB 55 MG PO; +SODIUM BICARBO650 MG PO
== END | disposition home or self-care (01) ==
LOC: OR 07:11
DX: I13.2 Hypertensive heart and chronic kidney disease with heart failure and with stage 5 chronic kidney disease, or end stage renal disease (principal); E11.22 Type 2 diabetes mellitus with diabetic chronic kidney disease; N18.6 End stage renal disease; I50.9 Heart failure, unspecified; S22.49XA Multiple fractures of ribs, unspecified side, initial encounter for closed fracture; L89.159 Pressure ulcer of sacral region, unspecified stage; I25.10 Atherosclerotic heart disease of native coronary artery without angina pectoris; E11.42 Type 2 diabetes mellitus with diabetic polyneuropathy; K21.9 Gastro-esophageal reflux disease without esophagitis; E78.5 Hyperlipidemia, unspecified; F17.210 Nicotine dependence, cigarettes, uncomplicated; Z99.2 Dependence on renal dialysis; Z79.82 Long term (current) use of aspirin; Z79.02 Long term (current) use of antithrombotics/antiplatelets; Z79.4 Long term (current) use of insulin; Z20.822 Contact with and (suspected) exposure to COVID-19
CPT/HCPCS: 82962; C1750; C1769; C1894; J1642; J1644; J2001; J2405; J2704; J2710; J3010; J3370; J7030; J7040; J7070; J7120

== ENCOUNTER 2021-10-29 17:36 | Emergency (ER) | payer OTHER ==
[2021-10-29 18:25] LABS: HEMOGLOBIN 10.1 gm/dl (14.0-17.5); RED BLOOD COUNT 3.45 M/UL (4.20-5.50); WHITE BLOOD COUNT 5.5 K/UL (4.5-11.0)
== END 2021-10-29 20:25 | disposition left against medical advice (07) ==
LOC: ER1 17:36
PROVIDERS: Emergency Medicine
DX: R53.1 Weakness (principal); I25.10 Atherosclerotic heart disease of native coronary artery without angina pectoris; I10 Essential (primary) hypertension; Z95.1 Presence of aortocoronary bypass graft
CPT/HCPCS: 80053; 83690; 85025; 93005; 99283

== ENCOUNTER 2021-11-22 10:47 | Emergency (ER) | payer OTHER ==
[2021-11-22 12:10] LABS: RED BLOOD COUNT 3.74 M/UL (4.20-5.50); WHITE BLOOD COUNT 8.9 K/UL (4.5-11.0)
[2021-11-22] MEDS ORDERED: VIBRAMYCIN 100100 MG PO (16:44)
[2021-11-22] MEDS ORDERED: CYCLOBENZAPRINE10 MG PO (17:24)
== END 2021-11-22 18:05 | disposition left against medical advice (07) ==
LOC: ER1 10:47
PROVIDERS: Physician Assistant
DX: L89.152 Pressure ulcer of sacral region, stage 2 (principal); M54.50 Low back pain, unspecified; G89.29 Other chronic pain; E11.22 Type 2 diabetes mellitus with diabetic chronic kidney disease; I12.0 Hypertensive chronic kidney disease with stage 5 chronic kidney disease or end stage renal disease; N18.6 End stage renal disease; Z99.2 Dependence on renal dialysis
CPT/HCPCS: 71045; 72132; 72193; 80053; 80307; 81001; 82550; 82553; 83605; 83880; 84484; 85025; 86140; 87040; 87077; 93005; 96365; 96366; 96367; 96375; 99285; J2270; J2543; J3370; J7030; Q9967

== ENCOUNTER 2021-11-24 16:50 | Emergency (ER) | payer OTHER ==
[~2021-11-24 16:50] MED LIST changes: +VIBRAMYCIN 100100 MG PO
== END 2021-11-24 17:52 | disposition left against medical advice (07) ==
LOC: ER1 16:50
DX: Z53.21 Procedure and treatment not carried out due to patient leaving prior to being seen by health care provider (principal)